=== PATIENT | male | born 1965 | race Hispanic/Latino ===

== ENCOUNTER 2018-03-14 09:24 | Observation (INO) | payer BC ==
[2018-03-14 09:26] VITALS: BMI 44.7
--- NOTE | 2018-03-14 09:51 | ED PDOC ---
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 pt states about 30 minutes ago he started to feel a tingling sensation in the left side of the face. pt states that something just doesnt feel right. he denies headaches, dizziness or weakness. pt denies numbness, weakness, tingling in the upper or lower extremities. pt states he has been having intermittent chest pain which he describes as gas feeling. pt states he has been under a lot of stress lately. pt denies any other complaints. Past Medical History - Provider Review Nursing Documentation Reviewed: Yes - Travel History Have you recently traveled outside [place] w/in the past 3 mons?: No - Infectious Disease Hx of Infectious Diseases: None - Cardiac Hx Hypertension: Yes - Neurological Other/Comment: Corbett's Palsy - Psychiatric Hx Substance Use: No - Surgical History Other/Comment: lap band - Anesthesia Hx Anesthesia: Yes Hx Anesthesia Reactions: No Family/Social History - Physician Review Nursing Documentation Reviewed: Yes Family/Social History: Unknown Family HX Smoking Status: Unknown If Ever Smoked Hx Alcohol Use: No Hx Substance Use: No Allergies/Home Meds Allergies/Adverse Reactions: Allergies No Known Allergies Allergy (Verified 03/14/18 11:49) Home Medications: Home Meds Medication Instructions Recorded Confirmed Rosuvastatin Calcium [Crestor] 10 mg PO DAILY 09/24/15 09/24/15 Review of Systems - Review of Systems Constitutional: absent: Fatigue, Fevers Eyes: absent: Vision Changes, Photophobia, Eye Pain ENT: absent: Sore Throat, Sinus Congestion Respiratory: absent: SOB, Cough Cardiovascular: absent: Chest Pain, Palpitations Gastrointestinal: absent: Abdominal Pain, Nausea, Vomiting Genitourinary Male: absent: Dysuria, Frequency Musculoskeletal: absent: Arthralgias, Back Pain, Neck Pain Skin: absent: Rash, Pruritis Neurological: Other (parasthesisias). absent: Headache, Dizziness, Focal Weakness, Speech Changes, Disequilibrium Psychiatric: absent: Anxiety, Depression, Suicidal Ideation Physical Exam Vital Signs Reviewed: Yes Vital Signs Temp Pulse Resp BP Pulse Ox 03/14/18 09:30 99.0 F 106 H 18 149/86 96 Temperature: Afebrile Blood Pressure: Hypertensive Pulse: Tachycardic Respiratory Rate: Normal Appearance: Positive for: Well-Appearing, Non-Toxic, Comfortable Pain Distress: None Mental Status: Positive for: Alert and Oriented X 3 - Systems Exam Head: Present: Atraumatic, Other (no facial droop). No: Tenderness, Swelling, Ecchymosis Pupils: Present: PERRL Extroacular Muscles: Present: EOMI Conjunctiva: Present: Normal Mouth: Present: Moist Mucous Membranes, Normal Lips, Normal Tounge (tongue is midline). No: Dry, Drooling, Trismus Nose (External): Present: Atraumatic Nose (Internal): Present: Normal Inspection Neck: Present: Normal Range of Motion Respiratory/Chest: Present: Clear to Auscultation, Good Air Exchange. No: Respiratory Distress, Accessory Muscle Use Cardiovascular: Present: Regular Rate and Rhythm, Normal S1, S2. No: Murmurs Abdomen: No: Tenderness, Rebound, Guarding Back: Present: Normal Inspection Upper Extremity: Present: Normal Inspection, Normal ROM, Neurovascularly Intact Lower Extremity: Present: Normal Inspection, Normal ROM Neurological: Present: GCS=15, Speech Normal, Motor Func Grossly Intact, Normal Sensory Function, Gait Normal, Memory Normal Skin: Present: Warm, Dry, Normal Color. No: Rashes Psychiatric: Present: Alert, Oriented x 3 Medical Decision Making ED Course and Treatment: 03/14/18 10:30 52yr old male with left sided facial paresthesias. No facial droop noted. pt with significant hx of htn, high cholesterol, obesity Code stroke called Baseline NIH score 0 Patient was seen and evaluated by the attending of record. Case was discussed with Dr. Newton Head CT:FINDINGS: HEMORRHAGE: No intracranial hemorrhage. BRAIN: No mass effect or edema. No atrophy or chronic microvascular ischemic changes. VENTRICLES: Unremarkable. No hydrocephalus. CALVARIUM: Unremarkable. PARANASAL SINUSES: Unremarkable as visualized. No significant inflammatory changes. MASTOID AIR CELLS: Unremarkable as visualized. No inflammatory changes. OTHER FINDINGS: Findings were called to the ER at 10 a.m. IMPRESSION: No acute findings 03/14/18 11:03 asa given po pt seen and evaluated by dr. Newton case discussed with dr. Aakash; accepts observational status admission for TIA impression: TIA admit observational status to tele Reassessment Condition: Re-examined, Improved - RAD Interpretation Radiology Orders: 03/14/18 09:45 HEAD W/O (CODE STROKE) [CT] Stat CHEST PORTABLE [RAD] Stat - Medication Orders Current Medication Orders: Sodium Chloride (Sodium Chloride 0.9%) 1,000 mls @ 100 mls/hr IV .Q10H [facility] NIHSS Scale ([place]) Time Performed: 09:47 - How Severe is the Stoke Baseline Level of Consciousness: 0=Alert LOC to Questions: 0=Both comments correct LOC to commands: 0=Obeys both correctly Best Gaze: 0=Normal Visual: 0=No visual loss Facial: 0=Normal Motor Arm - Left: 0=No drift Motor Arm - Right: 0=No drift Motor Leg - Left: 0=No drift Motor Leg - Right: 0=No drift Limb Ataxia: 0=Absent Sensory: 0=Normal Best Language: 0=No aphasia Dysarthia: 0=Normal articulation Extinction & Inattention (Neglect): 0=Normal, no object Score: 0 Risk Level: No Stroke Risk rTPA Inclusion/Exclusion - Refusal of Treatment Patient Refused Treatment: No - Inclusion Criteria for Altepase Patient is 18 years or Older: Yes The Clinical Diagnosis of Ischemic Stroke That is Causing a Potentially Disabling Neurological Deficit: No Time of Onset is Well Established to be Less Than 270 Minute Before Treatment Would Begin: Yes Risk/Benefit Discussed With Patient/Family Member Present: No Disposition/Present on Arrival - Present on Arrival Any Indicators Present on Arrival: No History of DVT/PE: No History of Uncontrolled Diabetes: No Urinary Catheter: No History of Decub. Ulcer: No History Surgical Site Infection Following: None - Disposition Have Diagnosis and Disposition been Completed?: Yes Diagnosis: TIA (transient ischemic attack) Disposition: HOSPITALIZED Disposition Time: 10:32 Patient Plan: Observation Patient Problems: Current Active Problems Problem Status Onset TIA (transient ischemic attack) Acute Condition: FAIR
[2018-03-14 10:02] LABS: BASO # 0.02 K/mm3 (0.0-2.0); BASO % 0.3 % (0.0-3.0); EOS # 0.1 (0.0-0.7); EOS % 1.1 % (1.5-5.0); GRAN # 4.21 (1.4-6.5); GRAN % 57.9 % (50.0-68.0); HEMOGLOBIN 14.7 g/dL (14.0-18.0); LYMPH # 2.4 (1.2-3.4); LYMPH % 32.9 % (22.0-35.0); MEAN CELL VOLUME 94.6 fl (80.0-105.0); MEAN CORPUSCULAR HGB CONC 33.8 g/dl (31.0-37.0); MEAN PLATELET VOLUME 9.7 fl (7.0-11.0); MONO # 0.6 (0.1-0.6); MONO % 7.8 % (1.0-6.0); RBC 4.6 10^6/uL (3.5-6.1); RED CELL DISTRIBUTION WIDTH 13.9 % (11.5-14.5); WHITE BLOOD COUNT 7.3 10^3/uL (4.5-11.0)
[2018-03-14 10:12] LABS: INR 1.03; PARTIAL THROMBOPLASTIN TIME 28.9 Seconds (25.1-36.5); PROTHROMBIN TIME 11.8 SECONDS (9.4-12.5)
--- NOTE | 2018-03-14 10:13 | CT ---
Date of service: 03/14/2018 PROCEDURE: CT HEAD WITHOUT CONTRAST. HISTORY: Code Stroke COMPARISON: None available. TECHNIQUE: Axial computed tomography images were obtained through the head/brain without intravenous contrast. Radiation dose: Total exam DLP = 1027.58 mGy-cm. This CT exam was performed using one or more of the following dose reduction techniques: Automated exposure control, adjustment of the mA and/or kV according to patient size, and/or use of iterative reconstruction technique. FINDINGS: HEMORRHAGE: No intracranial hemorrhage. BRAIN: No mass effect or edema. No atrophy or chronic microvascular ischemic changes. VENTRICLES: Unremarkable. No hydrocephalus. CALVARIUM: Unremarkable. PARANASAL SINUSES: Unremarkable as visualized. No significant inflammatory changes. MASTOID AIR CELLS: Unremarkable as visualized. No inflammatory changes. OTHER FINDINGS: Findings were called to the ER at 10 a.m. IMPRESSION: No acute findings
[2018-03-14 10:17] LABS: ALB/GLOB RATIO 1.1 (1.1-1.8); ALBUMIN 4.3 g/dL (3.0-4.8); ALT/SGPT 49 U/L (7-56); AST/SGOT 44 U/L (17-59); BLOOD UREA NITROGEN 16 mg/dL (7-21); CALCIUM 9.2 mg/dL (8.4-10.5); GFR NON-AFRICAN AMERICAN > 60; HDL CHOLESTEROL 50 mg/dL (29-60)
[2018-03-14] MEDS: Sodium Chloride 0.9% 1,000 ML IV SCH (10:22)
[2018-03-14 10:28] LABS: LDL CHOLESTEROL 101 mg/dL (0-129)
[2018-03-14 10:31] LABS: TROPONIN I < 0.01 ng/mL
--- NOTE | 2018-03-14 11:28 | RAD ---
Date of service: 03/14/2018 HISTORY: Code Stroke COMPARISON: No prior. FINDINGS: LUNGS: Limited inspiratory volume. Mild right hemidiaphragm elevation. Etiology unclear. No airspace disease appreciated bilaterally. PLEURA: No significant pleural effusion identified, no pneumothorax apparent. CARDIOVASCULAR: No aortic atherosclerotic calcification present. Prominent appearing cardiac silhouette. No pulmonary vascular congestion. OSSEOUS STRUCTURES: No significant abnormalities. VISUALIZED UPPER ABDOMEN: Normal. OTHER FINDINGS: None. IMPRESSION: Limited history volume but no infiltrates identified bilaterally. Prominent appearing cardiac silhouette. No pulmonary vascular congestion.
--- NOTE | 2018-03-14 13:20 | CP.PCM.CON ---
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 Code stroke was called but patient is not a TPA candidate, because his NIH stroke scale is low. Patient states that he was driving when he suddenly felt numbness in his left face and immediatley came to the ER. The numbness resolved but he has a heaviness in his left V1-V2 region now. Denies headache, aphasia, dysarthria, weakness, or ataxia. HE has a history of Fordyce palsy but otherwise no prior strokes. He does note that he was recently diagnosed with htn, and borderline dm. ROS: as above. PMH/PSH: DM, HTN FH/SH: no tobacco, social drinker. , has children. All: nkda. On exam: NIHSS : 1 NOrmal neurological examination except for decreased sensation V1-V2. Gait normal, no rhomberg, no dysmetria. Past Patient History - Infectious Disease Hx of Infectious Diseases: None - Past Social History Smoking Status: Unknown If Ever Smoked - CARDIAC Hx Hypertension: Yes - NEUROLOGICAL Other/Comment: Corbett's Palsy - PSYCHIATRIC Hx Substance Use: No - SURGICAL HISTORY Other/Comment: lap band - ANESTHESIA Hx Anesthesia: Yes Hx Anesthesia Reactions: No Meds Allergies/Adverse Reactions: Allergies Allergy/AdvReac Type Severity Reaction Status Date / Time beet Allergy ITCHING Verified 03/14/18 16:06 - Medications Medications: Current Medications Sodium Chloride (Sodium Chloride 0.9%) 1,000 mls @ 100 mls/hr IV .Q10H [facility] Last Admin: 03/14/18 10:22 Dose: 100 mls/hr Results - Vital Signs Recent Vital Signs: Last Vital Signs Temp 99.0 F 03/14/18 09:30 Pulse 78 03/14/18 11:49 Resp 18 03/14/18 11:49 BP 135/76 03/14/18 11:49 Pulse Ox 96 03/14/18 11:49 - Labs Result Diagrams: 03/14/18 09:45 03/14/18 09:45 Labs: Laboratory Results - last 24 hr 03/14/18 03/14/18 03/14/18 09:45 09:45 09:45 WBC 7.3 RBC 4.60 Hgb 14.7 Hct 43.5 MCV 94.6 MCH 32.0 MCHC 33.8 RDW 13.9 Plt Count 223 MPV 9.7 Gran % 57.9 Lymph % (Auto) 32.9 [place] % (Auto) 7.8 H Eos % (Auto) 1.1 L Baso % (Auto) 0.3 Gran # 4.21 Lymph # (Auto) 2.4 [place] # (Auto) 0.6 Eos # (Auto) 0.1 Baso # (Auto) 0.02 PT 11.8 INR 1.03 APTT 28.9 Sodium 139 Potassium 4.0 Chloride 102 Carbon Dioxide 28 Anion Gap 14 BUN 16 Creatinine 0.8 Est GFR ( Amer) > 60 Est GFR (Non-Af Amer) > 60 Random Glucose 177 H Calcium 9.2 Total Bilirubin 0.8 AST 44 ALT 49 Alkaline Phosphatase 83 Lactate Dehydrogenase 488 Total Creatine Kinase 105 Troponin I < 0.01 Total Protein 8.1 Albumin 4.3 Globulin 3.8 Albumin/Globulin Ratio 1.1 Triglycerides 78 Cholesterol 158 LDL Cholesterol Direct 101 HDL Cholesterol 50 Assessment & Plan - Assessment and Plan (Free Text) Assessment: 52 yr old male who may have a stroke, brainstem or recurrence of prior Fordyce palsy. We will admit him for observation and obtain MRI Brain. Patient has stated that he is very anxious so we will give him 2 mg iv ativan. IF MRI is positive, we will proceed with stroke workup. Thank you Dr. castle [facility]
--- NOTE | 2018-03-14 14:00 | CP.PCM.HP ---
<Sloan Parmar - Last Filed: 03/14/18 19:00> History of Present Illness - History of Present Illness History of Present Illness: H&P for Dr. Finn Service CC: Left-sided facial paresthesia This is a 52 yo M with PMH of Corbett's Palsy, HTN, HLD, and gastric lap band who presented with complaint of acute-onset left-sided facial paresthesia. Reports onset approximately 30 minutes prior to presentation. Reports this is not a new issue; has happened before due to the Corbett's palsy (cause of the Corbett's unknown), but this was more intense that previously as per patient, which made him anxious and made him decide to present. In the ED, Code stroke was called, and Head CT was negative for bleed or mass. As per the ED and neurology, his NIHSS was too low to be a tPA candidate. Since admission, his symptoms have been improving, although at time of exam he still reports some numbness. Denies dysphagia, sensation of choking, shortness of breath, nausea, emesis, diarrhea, loss of bowel/bladder control, or tongue bitting. No sick contacts, not aware of any hx of Lyme's, unaware of any prior tick bites, but does have a dog that had had ticks previously. At time of exam, patient is awake, alert, oriented to self/location/time, and appears fully neurologically intact. No appreciable slurring of speech, no appreciable facial droop. Pending MRI brain as per Neuro, pt requesting anti- anxiety medication for MRI. 12-system ROS negative except as above. PMH: as above PSH: gastric lap band, knee replacement Fam Hx: unknown Soc Hx: denies tobacco, illicits, IVDA; admits social EtOH Present on Admission - Present on Admission Any Indicators Present on Admission: No History of DVT/PE: No History of Uncontrolled Diabetes: No Review of Systems - Review of Systems All systems: reviewed and no additional remarkable complaints except (as per HPI) Past Patient History - Infectious Disease Hx of Infectious Diseases: None - Past Social History Smoking Status: Unknown If Ever Smoked - CARDIAC Hx Hypertension: Yes - NEUROLOGICAL Other/Comment: Corbett's Palsy - PSYCHIATRIC Hx Substance Use: No - SURGICAL HISTORY Other/Comment: lap band - ANESTHESIA Hx Anesthesia: Yes Hx Anesthesia Reactions: No Meds Allergies/Adverse Reactions: Allergies Allergy/AdvReac Type Severity Reaction Status Date / Time beet Allergy ITCHING Verified 03/14/18 16:06 Physical Exam - Constitutional Appears: Non-toxic, No Acute Distress - Head Exam Head Exam: ATRAUMATIC, NORMAL INSPECTION, NORMOCEPHALIC - Eye Exam Eye Exam: EOMI, Normal appearance, PERRL, Scleral icterus. absent: Conjunctival injection Pupil Exam: PERRL. absent: Fixed, Irregular, Unequal - ENT Exam ENT Exam: Mucous Membranes Moist, Normal Oropharynx (no tongue deviation, uvula midline). absent: Mucous Membranes Dry - Neck Exam Neck exam: Positive for: Full Rom, Normal Inspection - Respiratory Exam Respiratory Exam: Clear to Auscultation Bilateral, NORMAL BREATHING PATTERN. absent: Accessory Muscle Use, Chest Wall Tenderness, Decreased Breath Sounds - Cardiovascular Exam Cardiovascular Exam: REGULAR RHYTHM, RRR, +S1, +S2. absent: Bradycardia, Tachycardia, Irregular Rhythm, JVD, +S4 - GI/Abdominal Exam GI & Abdominal Exam: Normal Bowel Sounds, Soft. absent: Diminished Bowel Sounds, Distended, Firm, Hyperactive Bowel Sounds, Hypoactive Bowel Sounds, Rigid, Tenderness - Extremities Exam Extremities exam: Positive for: normal capillary refill, normal inspection, pedal pulses present. Negative for: calf tenderness, pedal edema, tenderness - Back Exam Back exam: absent: CVA tenderness (L), CVA tenderness (R) - Neurological Exam Additional comments: awake and alert, following all commands appropriately, normal speech, motor and sensory grossly intact and equal bilaterally, moving all extemities spontaneously - Psychiatric Exam Psychiatric exam: Normal Affect, Normal Mood - Skin Skin Exam: Dry, Intact, Normal Color, Warm Results - Vital Signs Recent Vital Signs: Last Vital Signs Temp 99.0 F 03/14/18 09:30 Pulse 78 03/14/18 11:49 Resp 18 03/14/18 11:49 BP 135/76 03/14/18 11:49 Pulse Ox 96 03/14/18 11:49 - Labs Result Diagrams: 03/14/18 09:45 03/14/18 09:45 Labs: Laboratory Results - last 24 hr 03/14/18 03/14/18 03/14/18 09:45 09:45 09:45 WBC 7.3 RBC 4.60 Hgb 14.7 Hct 43.5 MCV 94.6 MCH 32.0 MCHC 33.8 RDW 13.9 Plt Count 223 MPV 9.7 Gran % 57.9 Lymph % (Auto) 32.9 [place] % (Auto) 7.8 H Eos % (Auto) 1.1 L Baso % (Auto) 0.3 Gran # 4.21 Lymph # (Auto) 2.4 [place] # (Auto) 0.6 Eos # (Auto) 0.1 Baso # (Auto) 0.02 PT 11.8 INR 1.03 APTT 28.9 Sodium 139 Potassium 4.0 Chloride 102 Carbon Dioxide 28 Anion Gap 14 BUN 16 Creatinine 0.8 Est GFR ( Amer) > 60 Est GFR (Non-Af Amer) > 60 Random Glucose 177 H Calcium 9.2 Total Bilirubin 0.8 AST 44 ALT 49 Alkaline Phosphatase 83 Lactate Dehydrogenase 488 Total Creatine Kinase 105 Troponin I < 0.01 Total Protein 8.1 Albumin 4.3 Globulin 3.8 Albumin/Globulin Ratio 1.1 Triglycerides 78 Cholesterol 158 LDL Cholesterol Direct 101 HDL Cholesterol 50 Assessment & Plan - Assessment and Plan (Free Text) Assessment: This is a 52 yo M with PMH of Corbett's Palsy, HTN, HLD, and gastric lap band who presented with complaint of acute-onset left-sided facial paresthesia. Reports onset approximately 30 minutes prior to presentation. He has been admitted for TIA, stroke r/o. Plan: 1) Left facial numbness -ddx: TIA vs stroke vs corbett's palsy recurrence -symptoms already resolved by time of exam, more suggestive of TIA -Head CT negative for acute process, pending MRI brain as per Neuro -Neuro following, appreciate all recs -Starting high dose statin, Lipitor 80mg -Got ASA 325mg dose in ED, will continue with 81mg daily starting tomorrow -f/u lipid panel, tsh, a1c 2) Chronic issues -HTN: currently normotensive, no meds indicated -HLD: f/u lipid panel, now on high-intensity statin Dispo: pending MRI Ppx: Pepcid for GI, SCDs for DVT Reviewed and discussed with attending, Dr. Finn <Jared Finn - Last Filed: 03/16/18 18:12> Results - Vital Signs Recent Vital Signs: Last Vital Signs Temp 97.5 F L 03/15/18 11:46 Pulse 82 03/15/18 11:46 Resp 20 03/15/18 11:46 BP 155/93 H 03/15/18 11:46 Pulse Ox 95 03/15/18 05:46 - Labs Result Diagrams: 03/14/18 09:45 03/14/18 09:45 Assessment & Plan - Assessment and Plan (Free Text) Plan: Pt seen and examined. This is a late entry. I have reviewed the note of the ia dical resident and agree with it. I have reviewed the meds and labs of the pt. I have discussed the assessment and plan with the resident. Pt with numbness of L face that lasted a few minutes. Pt was on ASA in the past but stopped. Pt feels well and has not complaints. Pt will need Neuro evaluation. CT of the head is negative. No focal deficits. Probable TIA. No Corbett's palsy seen.
--- NOTE | 2018-03-14 14:26 | CARD ---
APPROVED REPORT Date of service: 03/14/2018 EKG Measurement Heart [id number] <Conclusion> Sinus rhythm with occasional premature ventricular complexes Borderline ECG
[2018-03-14] MEDS ORDERED: Influenza Vaccine 60 mcg/0.5 mL SYR (4YR UP) IM ONE (15:56)
[2018-03-14] MEDS ORDERED: Pneumococcal 23-Valent Vaccine IM ONE (15:56)
--- NOTE | 2018-03-14 17:48 | MRI ---
Date of service: 03/14/2018 PROCEDURE: MRI BRAIN WITHOUT CONTRAST HISTORY: code stroke/ left sided facial numbness COMPARISON: Comparison is made with the previous same-day CT of the head without contrast. TECHNIQUE: Multiplanar, multisequence MR images of the brain were obtained without intravenous contrast enhancement. FINDINGS: HEMORRHAGE: None DWI: No evidence of an acute or early subacute infarction. BRAIN PARENCHYMA: No mass effect or edema. Mild volume loss is noted. Few small nonspecific foci of hyperintense T2 and FLAIR signal in the white matter may represent mild chronic microvascular ischemic disease. VENTRICLES: Unremarkable. No hydrocephalus. CRANIUM: Unremarkable. ORBITS: Grossly unremarkable. PARANASAL SINUSES/MASTOIDS: Mild mucosal thickening in the right maxillary sinus is again noted. VASCULAR SYSTEM: Skull base flow voids intact. OTHER FINDINGS: None. IMPRESSION: No evidence of acute infarct. No evidence of intracranial hemorrhage mass effect or midline shift.
[2018-03-15] MEDS: Sodium Chloride 0.9% 1,000 ML IV SCH (01:07)
[2018-03-15 01:25] VITALS: RESP 20
[2018-03-15 05:47] VITALS: O2SAT 95
--- NOTE | 2018-03-15 10:25 | CP.PCM.DIS ---
<Sloan Parmar - Last Filed: 03/15/18 16:05> Provider - Provider Date of Admission: 03/14/18 11:15 Attending physician: Jared Finn MD Primary care physician: Dr. Finn Consults: 03/14/18 09:45 Stroke Team Consult Stat Comment: Consulting Provider: Neurohospitalist Consulting Physician: NEUROHOSP Neurohospitalist for Consult: Lars Severino Neurohospitalist for Consult: Emanuel Newton Reason for Consult: code stroke 03/14/18 15:56 Inpatient [employer] Core Measures Referral Routine Comment: Physician Instructions: Reason For Exam: EVALUATION Nursing Referral for Wound Care Routine Comment: ECZEMA,RASH TO LEGS BILATERALLY Physician Instructions: Reason For Exam: EVALUATION Transition In Care/Readmission Reduction Routine Comment: Physician Instructions: Reason For Exam: EVALUATION Time Spent in preparation of Discharge (in minutes): 35 Hospital Course - Lab Results Lab Results: Most Recent Lab Values WBC 7.3 10^3/uL (4.5-11.0) 03/14/18 09:45 RBC 4.60 10^6/uL (3.5-6.1) 03/14/18 09:45 Hgb 14.7 g/dL (14.0-18.0) 03/14/18 09:45 Hct 43.5 % (42.0-52.0) 03/14/18 09:45 MCV 94.6 fl (80.0-105.0) 03/14/18 09:45 MCH 32.0 pg (25.0-35.0) 03/14/18 09:45 MCHC 33.8 g/dl (31.0-37.0) 03/14/18 09:45 RDW 13.9 % (11.5-14.5) 03/14/18 09:45 Plt Count 223 10^3/uL (120.0-450.0) 03/14/18 09:45 MPV 9.7 fl (7.0-11.0) 03/14/18 09:45 Gran % 57.9 % (50.0-68.0) 03/14/18 09:45 Lymph % (Auto) 32.9 % (22.0-35.0) 03/14/18 09:45 Towns % (Auto) 7.8 % (1.0-6.0) H 03/14/18 09:45 Eos % (Auto) 1.1 % (1.5-5.0) L 03/14/18 09:45 Baso % (Auto) 0.3 % (0.0-3.0) 03/14/18 09:45 Gran # 4.21 (1.4-6.5) 03/14/18 09:45 Lymph # (Auto) 2.4 (1.2-3.4) 03/14/18 09:45 Towns # (Auto) 0.6 (0.1-0.6) 03/14/18 09:45 Eos # (Auto) 0.1 (0.0-0.7) 03/14/18 09:45 Baso # (Auto) 0.02 K/mm3 (0.0-2.0) 03/14/18 09:45 PT 11.8 SECONDS (9.4-12.5) 03/14/18 09:45 INR 1.03 03/14/18 09:45 APTT 28.9 Seconds (25.1-36.5) 03/14/18 09:45 Sodium 139 mmol/L (132-148) 03/14/18 09:45 Potassium 4.0 mmol/L (3.6-5.0) 03/14/18 09:45 Chloride 102 mmol/L (98-107) 03/14/18 09:45 Carbon Dioxide 28 mmol/L (21-33) 03/14/18 09:45 Anion Gap 14 (10-20) 03/14/18 09:45 BUN 16 mg/dL (7-21) 03/14/18 09:45 Creatinine 0.8 mg/dl (0.8-1.5) 03/14/18 09:45 Est GFR ( Amer) > 60 03/14/18 09:45 Est GFR (Non-Af Amer) > 60 03/14/18 09:45 POC Glucose (mg/dL) 112 mg/dL (65-110) H 03/15/18 07:29 Random Glucose 177 mg/dL (70-110) H 03/14/18 09:45 Hemoglobin A1c 6.9 % (4.2-6.5) H 03/14/18 10:00 Calcium 9.2 mg/dL (8.4-10.5) 03/14/18 09:45 Total Bilirubin 0.8 mg/dL (0.2-1.3) 03/14/18 09:45 AST 44 U/L (17-59) 03/14/18 09:45 ALT 49 U/L (7-56) 03/14/18 09:45 Alkaline Phosphatase 83 U/L (38-126) 03/14/18 09:45 Lactate Dehydrogenase 488 U/L (333-699) 03/14/18 09:45 Total Creatine Kinase 105 U/L (35-230) 03/14/18 09:45 Troponin I < 0.01 ng/mL 03/14/18 09:45 Total Protein 8.1 g/dL (5.8-8.3) 03/14/18 09:45 Albumin 4.3 g/dL (3.0-4.8) 03/14/18 09:45 Globulin 3.8 gm/dL 03/14/18 09:45 Albumin/Globulin Ratio 1.1 (1.1-1.8) 03/14/18 09:45 Triglycerides 78 mg/dL (35-160) 03/14/18 09:45 Cholesterol 158 mg/dL (130-200) 03/14/18 09:45 LDL Cholesterol Direct 101 mg/dL (0-129) 03/14/18 09:45 HDL Cholesterol 50 mg/dL (29-60) 03/14/18 09:45 TSH 3rd Generation 1.33 mIU/mL (0.46-4.68) 03/14/18 15:42 Blood Type O POSITIVE 03/14/18 16:53 Blood Type Confirm O POSITIVE 03/14/18 21:57 Antibody Screen Negative 03/14/18 16:53 BBK History Checked No verified bt 03/14/18 16:53 - Hospital Course Hospital Course: This is a 52 yo M with PMH of Corbett's Palsy, HTN, HLD, and gastric lap band who presented with complaint of acute-onset left-sided facial paresthesia. Reports onset approximately 30 minutes prior to presentation. Reports this is not a new issue; has happened before due to the Corbett's palsy (cause of the Corbett's unknown), but this was more intense that previously as per patient, which made him anxious and made him decide to present. In the ED, Code stroke was called, and Head CT was negative for bleed or mass. As per the ED and neurology, his NIHSS was too low to be a tPA candidate. Patient was seen and examined by Neuro, who suggested MRI of brain to evaluate f or possible stroke. MRI was negative, and patient's symptoms resolved shortly after admission, so this is most likely a TIA. Of note, testing for this admission was also notable for a Hemoglobin A1c of 6.9, so patient is now diagnosed as a type 2 diabetic. Given the likely TIA, the DM diagnosis, and a 10-year calculated ASCVD risk of 7.3%, patient was instructed to increase his Crestor to 20mg daily (high intensity dosing, new script provided). He was instructed in dietary and lifestyle changes for his newly diagnosed DMII, and was instructed to follow up with his PMD within 1 week. Will defer starting Metformin at this time. He was also instructed to resume all other confirmed home medications. Patient expressed understanding and agreement. Questions were answered to his satisfaction, and then he was discharged. Reviewed and discussed with attending, Dr. Finn Discharge Exam - Additional Findings Additional findings: - Constitutional Appears: Non-toxic, No Acute Distress - Head Exam Head Exam: ATRAUMATIC, NORMAL INSPECTION, NORMOCEPHALIC - Eye Exam Eye Exam: EOMI, Normal appearance, PERRL, Scleral icterus. absent: Conjunctival injection Pupil Exam: PERRL. absent: Fixed, Irregular, Unequal - ENT Exam ENT Exam: Mucous Membranes Moist, Normal Oropharynx (no tongue deviation, uvula midline). absent: Mucous Membranes Dry - Neck Exam Neck exam: Positive for: Full Rom, Normal Inspection - Respiratory Exam Respiratory Exam: Clear to Auscultation Bilateral, NORMAL BREATHING PATTERN. absent: Accessory Muscle Use, Chest Wall Tenderness, Decreased Breath Sounds - Cardiovascular Exam Cardiovascular Exam: REGULAR RHYTHM, RRR, +S1, +S2. absent: Bradycardia, Tachycardia, Irregular Rhythm, JVD, +S4 - GI/Abdominal Exam GI & Abdominal Exam: Normal Bowel Sounds, Soft. absent: Diminished Bowel Sounds, Distended, Firm, Hyperactive Bowel Sounds, Hypoactive Bowel Sounds, Rigid, Tenderness - Extremities Exam Extremities exam: Positive for: normal capillary refill, normal inspection, pedal pulses present. Negative for: calf tenderness, pedal edema, tenderness - Back Exam Back exam: absent: CVA tenderness (L), CVA tenderness (R) - Neurological Exam awake and alert, following all commands appropriately, normal speech, motor and sensory grossly intact and equal bilaterally, moving all extemities spontaneously - Psychiatric Exam Psychiatric exam: Normal Affect, Normal Mood - Skin Skin Exam: Dry, Intact, Normal Color, Warm Discharge Plan - Discharge Medications Prescriptions: Rosuvastatin Calcium [Crestor] 20 mg PO DAILY #30 tab - Follow Up Plan Condition: FAIR Disposition: HOME/ ROUTINE Instructions: Type 2 Diabetes, Transient Ischemic Attack (DC) Additional Instructions: You were seen in the hospital for your left-sided facial numbness. Our testing indicates that you did not suffer a stroke. You may have instead suffered a Transient Ichemic Attack (a "mini-stroke"). Your testing does indicate you are now a Diabetic. Please resume all home medications as previously prescribed. Please follow up with your PMD (Dr. Finn) within 1 week of discharge. Please present to the nearest emergency department if you experience worsening or newly concerning symptoms. Referrals: Jared Finn MD [Family Provider] - <Jared Finn - Last Filed: 03/16/18 17:50> Provider - Provider Date of Admission: 03/14/18 11:15 Attending physician: Jared Finn MD Consults: 03/14/18 09:45 Stroke Team Consult Stat Comment: Consulting Provider: Neurohospitalist Consulting Physician: NEUROHOSP Neurohospitalist for Consult: Lars Severino Neurohospitalist for Consult: Emanuel Newton Reason for Consult: code stroke 03/14/18 15:56 Inpatient [employer] Core Measures Referral Routine Comment: Physician Instructions: Reason For Exam: EVALUATION Nursing Referral for Wound Care Routine Comment: ECZEMA,RASH TO LEGS BILATERALLY Physician Instructions: Reason For Exam: EVALUATION Transition In Care/Readmission Reduction Routine Comment: Physician Instructions: Reason For Exam: EVALUATION Hospital Course - Lab Results Lab Results: Most Recent Lab Values WBC 7.3 10^3/uL (4.5-11.0) 03/14/18 09:45 RBC 4.60 10^6/uL (3.5-6.1) 03/14/18 09:45 Hgb 14.7 g/dL (14.0-18.0) 03/14/18 09:45 Hct 43.5 % (42.0-52.0) 03/14/18 09:45 MCV 94.6 fl (80.0-105.0) 03/14/18 09:45 MCH 32.0 pg (25.0-35.0) 03/14/18 09:45 MCHC 33.8 g/dl (31.0-37.0) 03/14/18 09:45 RDW 13.9 % (11.5-14.5) 03/14/18 09:45 Plt Count 223 10^3/uL (120.0-450.0) 03/14/18 09:45 MPV 9.7 fl (7.0-11.0) 03/14/18 09:45 Gran % 57.9 % (50.0-68.0) 03/14/18 09:45 Lymph % (Auto) 32.9 % (22.0-35.0) 03/14/18 09:45 Towns % (Auto) 7.8 % (1.0-6.0) H 03/14/18 09:45 Eos % (Auto) 1.1 % (1.5-5.0) L 03/14/18 09:45 Baso % (Auto) 0.3 % (0.0-3.0) 03/14/18 09:45 Gran # 4.21 (1.4-6.5) 03/14/18 09:45 Lymph # (Auto) 2.4 (1.2-3.4) 03/14/18 09:45 Towns # (Auto) 0.6 (0.1-0.6) 03/14/18 09:45 Eos # (Auto) 0.1 (0.0-0.7) 03/14/18 09:45 Baso # (Auto) 0.02 K/mm3 (0.0-2.0) 03/14/18 09:45 PT 11.8 SECONDS (9.4-12.5) 03/14/18 09:45 INR 1.03 03/14/18 09:45 APTT 28.9 Seconds (25.1-36.5) 03/14/18 09:45 Sodium 139 mmol/L (132-148) 03/14/18 09:45 Potassium 4.0 mmol/L (3.6-5.0) 03/14/18 09:45 Chloride 102 mmol/L (98-107) 03/14/18 09:45 Carbon Dioxide 28 mmol/L (21-33) 03/14/18 09:45 Anion Gap 14 (10-20) 03/14/18 09:45 BUN 16 mg/dL (7-21) 03/14/18 09:45 Creatinine 0.8 mg/dl (0.8-1.5) 03/14/18 09:45 Est GFR ( Amer) > 60 03/14/18 09:45 Est GFR (Non-Af Amer) > 60 03/14/18 09:45 POC Glucose (mg/dL) 123 mg/dL (65-110) H 03/15/18 12:30 Random Glucose 177 mg/dL (70-110) H 03/14/18 09:45 Hemoglobin A1c 6.9 % (4.2-6.5) H 03/14/18 10:00 Calcium 9.2 mg/dL (8.4-10.5) 03/14/18 09:45 Total Bilirubin 0.8 mg/dL (0.2-1.3) 03/14/18 09:45 AST 44 U/L (17-59) 03/14/18 09:45 ALT 49 U/L (7-56) 03/14/18 09:45 Alkaline Phosphatase 83 U/L (38-126) 03/14/18 09:45 Lactate Dehydrogenase 488 U/L (333-699) 03/14/18 09:45 Total Creatine Kinase 105 U/L (35-230) 03/14/18 09:45 Troponin I < 0.01 ng/mL 03/14/18 09:45 Total Protein 8.1 g/dL (5.8-8.3) 03/14/18 09:45 Albumin 4.3 g/dL (3.0-4.8) 03/14/18 09:45 Globulin 3.8 gm/dL 03/14/18 09:45 Albumin/Globulin Ratio 1.1 (1.1-1.8) 03/14/18 09:45 Triglycerides 78 mg/dL (35-160) 03/14/18 09:45 Cholesterol 158 mg/dL (130-200) 03/14/18 09:45 LDL Cholesterol Direct 101 mg/dL (0-129) 03/14/18 09:45 HDL Cholesterol 50 mg/dL (29-60) 03/14/18 09:45 TSH 3rd Generation 1.33 mIU/mL (0.46-4.68) 03/14/18 15:42 Blood Type O POSITIVE 03/14/18 16:53 Blood Type Confirm O POSITIVE 03/14/18 21:57 Antibody Screen Negative 03/14/18 16:53 BBK History Checked No verified bt 03/14/18 16:53 - Hospital Course Hospital Course: Pt seen and examined. This is a late entry. I have reviewed the note of the medical malpractice paralegal and agree with it. I have reviewed the meds and labs of the pt. I have discussed the assessment and plan with the resident. Pt with possible TIA. He had an MRI and CT of the head. He was advised to restart ASA that he was taking before. He is on Crestor for dyslipidemia. Pt with no focal deficits. Neuro was consulted. He has HTN that is controlled. He had a lap band in the past.
[2018-03-15 11:47] VITALS: BP 155/93; PULSE 82; TEMP 97.5
== END 2018-03-15 15:10 | disposition home or self-care (01) ==
LOC: ED 09:24 → ERH 11:15 → 2RSO 12:18
PROVIDERS: ADMIT Internal Medicine Nephrology; ATTEND Internal Medicine Nephrology
DX: G45.9 Transient cerebral ischemic attack, unspecified (principal); E11.9 Type 2 diabetes mellitus without complications; E78.5 Hyperlipidemia, unspecified; I10 Essential (primary) hypertension; G51.0 Bell's palsy; I25.10 Atherosclerotic heart disease of native coronary artery without angina pectoris; E66.9 Obesity, unspecified; Z68.41 Body mass index [BMI] 40.0-44.9, adult; Z96.659 Presence of unspecified artificial knee joint; Z98.84 Bariatric surgery status
CPT/HCPCS: 70450; 70551; 71045; 80053; 80061; 82550; 82948; 83036; 83615; 84443; 84484; 85025; 85610; 85730; 86850; 86900; 93005; 96374; 97116; 97161; 99285; G0378; G8978; G8979; G8980; J2060; J7030

== ENCOUNTER 2018-06-05 06:04 | Day surgery (SDC) | payer BC ==
[2018-05-23 14:58] VITALS: BMI 44.3
[2018-06-05] MEDS ORDERED: Lidocaine 2% Inj (20ml) ONE (07:07)
[2018-06-05] MEDS ORDERED: Iodixanol 320 MG/ML 100 ML BOTTLE IV ONE (07:08)
[2018-06-05] MEDS ORDERED: Phenylephrine 10 mg/ml Inj ONE (07:08)
[2018-06-05] MEDS ORDERED: Nitroglycerin 50mg in D5W 0 MG/0 ML BOTTLE IV ONE (07:08)
[2018-06-05] MEDS ORDERED: Iodixanol 320 MG/ML 200 ML BOTTLE IV ONE (07:08)
[2018-06-05] MEDS ORDERED: Iohexol 350mgl/ml 50 ML ONE (07:08)
[2018-06-05] MEDS ORDERED: Midazolam 2 MG/2 ML VIAL ONE (09:13)
[2018-06-05] MEDS ORDERED: Sodium Chloride 0.9% 1,000 ML IV SCH (09:30)
[2018-06-05 09:54] VITALS: TEMP 97.2
[2018-06-05 10:51] VITALS: RESP 18; O2SAT 94
[2018-06-05 11:53] VITALS: PULSE 74
[2018-06-05 12:37] VITALS: BP 121/92
--- NOTE | 2018-06-06 17:43 | CARDCATH ---
PROCEDURE DATE: 06/05/2018 PROCEDURES: 1. Selective left and right coronary angiography. 2. Left ventriculography. 3. Right femoral arteriography. 4. Angio-Seal deployment. HISTORY: This is a 52-year-old male with history of diabetes and recent chest discomfort. Nuclear stress test suggested possible ischemia and cardiac catheterization was advised. INDICATION: As above. FINDINGS: Aortic pressure was 140/70, left ventricular pressure was 140/22. CORONARY ANATOMY: 1. The left mainstem was normal. 2. The left anterior descending artery and its branches had minimal irregularities. 3. The left circumflex artery and its branches also had minimal irregularities. 4. The right coronary artery was dominant. This had several 40% stenoses in the mid and distal segment of the vessel. The PDA and PLV branches had no significant disease. LEFT VENTRICULOGRAPHY: A hand injection was performed on the ventricle field and this revealed normal wall motion with an ejection fraction of 60%. There was no aortic valve gradient on catheter pullback. As noted, the left ventricular end-diastolic pressure was elevated. CONCLUSION: 1. [id number] mid and distal RCA disease. 2. Normal left coronary system. 3. Normal LV systolic function. 4. Elevated left ventricular end diastolic pressure. RECOMMENDATIONS: Given the above findings, aggressive risk factor control was advised. Followup stress testing would be recommended. The importance of the presence of coronary artery disease and potential for progression given his young age was discussed in detail with the patient as well. Javy Collins MD [email or web address]
== END 2018-06-05 12:45 | disposition home or self-care (01) ==
LOC: CATH 06:04
PROVIDERS: ATTEND Internal Medicine Cardiovascular Disease
DX: I25.10 Atherosclerotic heart disease of native coronary artery without angina pectoris (principal); I10 Essential (primary) hypertension; E11.9 Type 2 diabetes mellitus without complications; E66.9 Obesity, unspecified; Z68.41 Body mass index [BMI] 40.0-44.9, adult
CPT/HCPCS: 36415; 86850; 86900; 93458; 99152; C1760; C1769; C2629; J1644; J2250; J3010; J7030; Q9966

== ENCOUNTER 2018-07-26 10:13 | Day surgery (SDC) | payer BC ==
[2018-07-24 15:17] VITALS: BMI 38.7
[2018-07-26] MEDS ORDERED: Propofol 10 mg/ml Inj (20 ML) ONE (11:54)
[2018-07-26 15:29] VITALS: BP 121/75; PULSE 65; RESP 15; TEMP 98.1; O2SAT 99
== END 2018-07-26 14:08 | disposition home or self-care (01) ==
LOC: ENDO 10:13
PROVIDERS: ATTEND Internal Medicine Gastroenterology
DX: K21.0 Gastro-esophageal reflux disease with esophagitis (principal); K29.50 Unspecified chronic gastritis without bleeding; E11.9 Type 2 diabetes mellitus without complications; E78.00 Pure hypercholesterolemia, unspecified; I10 Essential (primary) hypertension; Z98.84 Bariatric surgery status
CPT/HCPCS: 43239; 82948; 88305; 88312; 88342; J2704; J7040

== ENCOUNTER 2018-07-29 07:32 | Day surgery (SDC) | payer BC ==
[2018-07-24 15:41] VITALS: BMI 38.7
[~2018-07-29 07:32] MED LIST: Sodium Chloride 0.9% 1,000 ML IV SCH
[2018-07-29] MEDS ORDERED: Propofol 10 mg/ml Inj (20 ML) ONE (09:02)
[2018-07-29] MEDS ORDERED: Sodium Chloride 0.9% 1,000 ML IV SCH (10:00)
[2018-07-29 11:32] VITALS: BP 124/76; PULSE 75; RESP 16; TEMP 98.4; O2SAT 95
== END 2018-07-29 11:20 | disposition home or self-care (01) ==
LOC: ENDO 07:32
PROVIDERS: ATTEND Internal Medicine Gastroenterology
DX: K64.1 Second degree hemorrhoids (principal); K57.30 Diverticulosis of large intestine without perforation or abscess without bleeding; E11.9 Type 2 diabetes mellitus without complications; I10 Essential (primary) hypertension; E78.00 Pure hypercholesterolemia, unspecified
CPT/HCPCS: 45378; 82948; J2001; J2704; J3010; J7030 ×2